=== PATIENT | female | born 1970 | race Caucasian/White ===

== ENCOUNTER 2024-08-01 14:14 | Outpatient (RCR) | payer MEDICAID, SELFPAY ==
[2024-08-01 14:38] VITALS: BP 154/96; PULSE 106; RESP 18; TEMP 37.1; BMI 13.7
--- NOTE | 2024-08-01 15:12 | HP.PCM_ITS ---
History of Present Illness Date of Service: 08/01/24 Chief Complaint: sacrococcygeal pressure ulcer History of Wound: Kristina Bowles is a 53 y/o female who presents to the wound center today for evaluation and management of a sacrococcygeal pressure ulceration. She is accompanied to her appointment today by her who has been providing her wound care at home. About 2 weeks ago she was discharged following a prolonged hospitalization during which she sustained this sacral pressure ulceration; she reports she also had approximately 7 other pressure ulcerations in other locations (back, feet) which have since healed. She was admitted with acute respiratory failure secondary to double lung pneumonia and was on a ventilator for 11 days and then had an additional 2-3 week hospitalization thereafter. She is currently on 6 liters of O2 via NC. During this hospitalization she also lost a significant amount of weight, she weighs only 68 lbs with BMI 13.7. She was a former smoker, quit at the time of her hospitalization and has remained quit so far. Current wound care is Medihoney and gauze dressing changed daily. They are not fans of this dressing, find it challenging to apply. She has not had any infections to this point; though had been on extended antibiotics for her pneumonia. Not currently on any antibiotics. She is currently drinking 3-4 ensures a day for meal supplementation. She is not diabetic. She currently has increased difficulty breathing if she lies flat or on her side so for this reason she has been sleeping in a recliner. It is a new recliner, very nice with good cushion. She does have difficulty repositioning due to many positions aggravating her dyspnea. [facility] Home Medications ?Medication ?Instructions ?Recorded ?Last Taken ?Type albuterol sulfate 2.5 mg/3 mL 1 Q6H PRN PRN wheezing 0 08/01/24 Unknown History (0.083 %) solution for nebulization buspirone 10 mg tablet 10 mg PO TID PRN PRN anxiety 08/01/24 Unknown History fluticasone furoate 100 1 inh inhalation DAILY PRN w heezing 08/01/24 Unknown History mcg/actuation blister powder for inhalation (Arnuity Ellipta) hydroxyzine pamoate 50 mg capsule 50 mg PO Q6H PRN PRN anxiety 08/01/24 Unknown History ipratropium 0.5 mg-albuterol 3 mg 3 ml TID PRN PRN whe ezing 08/01/24 Unknown History (2.5 mg base)/3 mL nebulization soln metoprolol tartrate 25 mg tablet 12.5 mg PO Q8 5 Unknown History ondansetron 4 mg disintegrating 4 mg PO Q6H PRN PRN na usea/vomiting 08/01/24 Unknown History tablet Allergy/AdvReac Type Severity Reaction Status Date / Time tramadol Allergy Other Verified 08/01/24 14:36 Social History Smoking Status: Former smoker Vital Signs Vital Signs Vital Signs: 08/01/24 14:38 Temperature 98.7 F Temperature Source Temporal Pulse Rate 106 H Respiratory Rate 18 Blood Pressure 154/96 H Blood Pressure Mean 115 Blood Pressure Source Monitor Blood Pressure Position Semi-Fowlers Blood Pressure Location Right Arm Oxygen Delivery Method Nasal Cannula Oxygen Flow Rate (L/min) 6 Weight Weight: 68 lb Body Mass Index (BMI) 13.7 Physical Exam Const alert, oriented x3 and no apparent distress General Appearance: frail and appears older than stated age Exam Limitations: no limitations Nutritional Appearance: cachectic HEENT normocephalic, head/scalp atraumatic, hearing grossly normal bilaterally and external ears normal Eyes General Eye: normal appearance of both eyes Resp normal respiratory effort, no retractions and no use of accessory muscles Resp Narrative: On 6 lpm O2 via NC Effort and Inspection: able to speak in complete sentences Extremity no clubbing, cyanosis or edema Skin Wounds: wounds noted Wound Narrative: sacrococcygeal ulceration which probes to bone at greatest depth otherwise to muscle through most of the wound bed. Wound bed is pink and bleeds well with debridement; there was moderate slough/bioburden. No muscle necrosis. Exposed bone is hard to probing, no necrosis. There is significant undermining without apparent tunneling. There is no surrounding erythema, focal edema, f luctuance/induration, significant drainage, or foul odor. Neuro moves all extremities and no sensory deficits noted Speech: speech normal Psych mental status grossly normal Appearance: grossly normal Attitude: calm and engaged Activity / Motor Behavior: appropriate eye contact Speech: normal speech Mood & Affect: euthymic mood Debridement Note Debridement Note Wound debrided: sacrococcygeal pressure ulceration Laterality: Not Applicable Type of Debridement: Excisional debridement Anesthesia Used: 5% Lidocaine Gel Depth: to muscle and to bone (wound to bone, debridement of muscle, no bone debridement) Percentage of wound debrided: 100 Instrument Used: 7mm curette Tissue Removed: bioburden/slough Severity: Fat Layer Exposed (to muscle/bone but without tissue necrosis) Amount of bleeding with debridement: Mild Bleeding Controlled with: Pressure Patient tolerated procedure: Patient tolerated procedure well Post-Debridement Measurements and Additional Note: Post-Debridement Measurements/Treatment [place] - Nurse 1 - General Ulcer Assessment Start: 08/01/24 14:35 Freq: Status: Active Protocol: SELVIN Activity Type Activity Date Activity User E-sign Co-sign Detail Recorded Client Recorded Date Recorded By Document 08/01/24 14:38 PATRICIO [id number] 08/01/24 14:44 KW 08/01/24 14:38 - Today's Visit Information Type of service Initial Visit Arrival Mode Ambulatory Accompanied by Patient Identification Verified (Name & Yes ) Height and Weight Height 4 ft 11 in Weight 68 lb Weight in Pounds 68.0 lbs Weight Measurement Method Estimated by Patient Body Mass Index (BMI) 13.7 BMI Classification Underweight Vital Signs Temperature (97.8 F-99.1 F) 98.7 F Temperature Source Temporal Pulse Rate (60-100) 106 H Pulse Location Monitor Respiratory Rate (12-18) 18 Respiratory rate source Observation Oxygen Delivery Method Nasal Cannula O2 L/MIN 6 Blood Pressure (90/60-120/80) 154/96 H Blood Pressure Mean 115 Source Monitor Position Semi-Fowlers Blood Pressure Location Right Arm History Since Last Visit- (Skip if this is Patient's initial visit) Left Footwear Regular Shoe Right Footwear Regular Shoe Pain Scale: 0-10 Numeric Is Patient Pain Free? Yes Communication Assessment Preferred language Salvadorean Type Proof Reproducer Required No Communication Tools None Caregiver Communication Skills No Impairment Impairment Right Hearing Abillity Normal Left Hearing Abillity Normal Visual Assistive Devices Glasses Teaching Assessment Preferences Verbal,Written, Demonstration Barriers to Learning None Readiness To Learn Excellent Willingness to Engage in Self Management High Activies Readiness to Engage in Self Management High Activities Anxiety Level Calm Cooperation Cooperative Perception Coherent Interest in Health Problem Asks Questions Education Importance Acknowledges Need Does Patient Smoke tobacco or other Yes substances Smoking Status Former smoker Is Patient Diabetic No Functional Assessment Recent Decline in Ability to Perform Denies Any Declines Culture/Moravian/Pull Over Machine Operator Cultural/Moravian Needs that may affect No Treatment Plan Would you allow our hospital medical staff physician to No meet you for the purpose of spiritual/ emotional support? Pull Over Machine Operator to contact place of uatsdin No WC - Nurse 1 - General Ulcer Measurement Start: 08/01/24 14:35 Freq: Status: Active Protocol: Activity Type Activity Date Activity User E-sign Co-sign Detail Recorded Client Recorded Date Recorded By Document 08/01/24 14:38 [id number] 08/01/24 14:44 08/01/24 14:38 Wound Center Nurse 1 #1 [id number] -Current Size (cm) - Length 5.5 -Current Size (cm) - Width 3.3 -Current Size (cm) - Depth 0.3 -Total Square Cm 18.15 -Date of Last Picture (Recall this 08/01/24 field) -Undermining/Tunneling Yes -Undermining/Tunneling Starts (O'clock 10 ) -Undermining/Tunneling Ends (O'clock) 3 -Maximum Distance (cm) 1.5 -Exudate Amt Medium -Exudate Type Serosanguineous -Wound Margin Thickened & Rolled Under -Granulation Amt Large (67-100%) -Granulation Quality [place] -Necrosis Amt Medium (34-66%) -Necrotic Tissue Type Adherent Slough -Texture (Rosa-wound Skin Appearance) Assessed -Moisture (Rosa-wound Skin Appearance) Assessed -Color (Rosa-wound Skin Appearance) Assessed -Temperature (Rosa-wound Skin No Abnormality Appearance) (Pt Warm) -Tenderness on Palpation (Rosa-wound No Skin Appearance) -Ulcer Cleansing Rinsed/ Irrigated with Saline -Foul Odor after Cleansing No -Anesthetic Used 5% Lidocaine Gel WC - Nurse 2 - General Ulcer CM Notes Start: 08/01/24 14:35 Freq: Status: Active Protocol: Activity Type Activity Date Activity User E-sign Co-sign Detail Recorded Client Recorded Date Recorded By Document 08/01/24 14:52 [id number] 08/01/24 15:06 08/01/24 14:52 Wound Center Nurse 2 -Time 14:52 -Correct Patient Yes -Correct Side, Site, Position Yes -Correct Procedure Yes -Procedure Performed Yes -Type of Procedure Debridement -Clinical Debridement Muscle / Fascia -Tissue Removed Muscle,Tendon -Post Debridement (cm) - Length 6.0 -Post Debridement (cm) - Width 3.2 -Post Debridement (cm) - Depth 0.9 -Total Square (Post) (cm) 19.20 -Area of Debridement (cm) - Length 6.0 -Area of Debridement (cm) - Width 3.2 -Total Square (Area) (cm) 19.20 -Tunneling No -Undermining/Tunneling Yes -Undermining/Tunneling Starts (O'clock 9 ) -Undermining/Tunneling Ends (O'clock) 1 -Maximum Distance (cm) 0.5 -Circular Undermining No -Wound/Ulcer Outcome Not Healed -Ulcer Cleansing Rinsed/ Irrigated with Saline -Foul Odor after Cleansing No -Bioengineered Tissue No -Bleeding Controlled with Pressure -Treatment Response Procedure Tolerated Well -Offloading No -Debridement - Muscle / Fascia, 1st Yes 20sq cm Pain Scale: 0-10 Numeric Is Patient Pain Free? Yes Charges/Coding Visit Charges Office Visits / Consults: [id number] OV L3 New 30min Procedures Integumentary [id number]: [id number] Yoko musc/fascia 20 sq cm/< Assessment/Plan Assessment/Plan (1) Pressure ulcer of coccygeal region, stage 4: CODE(S): L89.154 - Pressure ulcer of sacral region, stage 4 (2) Pulmonary cachexia due to COPD: CODE(S): R64 - Cachexia; J44.9 - Chronic obstructive pulmonary disease, unspecified (3) Chronic respiratory failure: CODE(S): J96.10 - Chronic respiratory failure, unspecified whether with hypoxia or hypercapnia PLAN: Plan She has a stage IV pressure ulceration of the coccygeal area; this is secondary to prolonged hospitalization and cachexia/significant weight loss. They have been doing well caring for this at home since her hospital discharge, the wound base is healthy and there are no signs/symptoms of infection. I performed wound debridement which she tolerated well. For wound care: (1) wash the area with antibacterial soap and water, pat to dry (2) apply lightly moistened Prudence to the wound bed (3) cover with mepilex or ExcelSAP foam border dressing (4) change daily or more often as needed to keep clean and dry We discussed the importance of offloaing measures. I recommend obtaining an additional foam or gel pad to add to her recliner. I recommend using pillows as wedges to allow for more subtle position changes that allow some increased offloading hopefully without exacerbating her dyspnea. I advise trying to shift positions every 1-2 hours, this can include standing or ambulating for a few minutes as well. I encourage continuing to address her nutrition deficit. Encourage continued use of Ensure to supplement meals, but continue to try to increase regular diet/solid foods as well with focus on nutrient dense foods. As well, provided samples of Wili which she can also add to drink 1-2 times daily. At present, her is providing all care including wound care. He states he is managing OK for now. I advised them to please let us know if this becomes challenging/unsustainable and we can try to help coordinate HHC. She will return to the wound center in 1 week, sooner as needed.
--- NOTE | 2024-08-02 12:13 | WC ---
PHOTO 08/01/24 SACRAL
== END 2024-08-10 23:59 | disposition home or self-care (01) ==
LOC: WC 14:14
PROVIDERS: Visit Provider Physician Assistant
DX: L89.154 Pressure ulcer of sacral region, stage 4 (principal); J96.10 Chronic respiratory failure, unspecified whether with hypoxia or hypercapnia; J44.0 Chronic obstructive pulmonary disease with (acute) lower respiratory infection; Z79.51 Long term (current) use of inhaled steroids; Z87.891 Personal history of nicotine dependence; R64 Cachexia; Z68.1 Body mass index [BMI] 19.9 or less, adult
CPT/HCPCS: 11043; 99203; G0463